=== PATIENT | male | born 1965 | race Caucasian/White ===

== ENCOUNTER 2020-10-18 11:23 | Emergency (ER) | payer OTHER, MEDICARE | END 2020-10-18 14:47 | disposition home or self-care (01) | LOC: JVIRT 11:23 | DX: Z11.52 Encounter for screening for COVID-19 (principal) | CPT/HCPCS: C9803; G2251-GT; U0003 ==

== ENCOUNTER 2020-10-25 10:42 | Emergency (ER) | payer OTHER, MEDICARE | END 2020-10-25 10:51 | disposition home or self-care (01) | LOC: JVIRT 10:42 | DX: Z20.822 Contact with and (suspected) exposure to COVID-19 (principal) | CPT/HCPCS: C9803; G2251-GT; U0003 ==

== ENCOUNTER 2021-04-22 14:31 | Emergency (ER) | payer OTHER, MEDICARE ==
[2021-04-24 12:07] LABS: SARS-CoV-2 NAA Not Detected (Not Detected)
== END 2021-04-22 16:25 | disposition home or self-care (01) ==
LOC: JVIRT 14:31
DX: R09.81 Nasal congestion (principal); R07.0 Pain in throat; Z11.52 Encounter for screening for COVID-19
CPT/HCPCS: C9803; Q3014-GT; U0003; U0005

== ENCOUNTER 2024-02-05 19:56 | Inpatient (IN) | payer OTHER, MEDICARE ==
[2024-02-05 20:48] LABS: HEMATOCRIT 39.2 % (35.4-49); HEMOGLOBIN 12.5 G/dL (11.7-16.9); MCH 28.8 pg (25.7-33.7); MEAN PLT VOLUME 8.7 fl (7.5-11.1); PLATELET COUNT 169.1 10^3/uL (134-434); RBC 4.35 10^6/uL (4.00-5.60); RDW 14.8 % (11.9-15.9); WHITE BLOOD COUNT 12.1 10^3/uL (4.0-10.8)
[2024-02-05 20:57] LABS: INR 1.14 (0.83-1.09); PROTHROMBIN TIME (PATIENT) 12.9 SEC (9.7-13.0)
[2024-02-05 20:58] LABS: PLATELET ESTIMATE ADEQUATE
[2024-02-05 21:00] LABS: ACTIVATED PTT 33.1 SECONDS (25.2-36.5)
[2024-02-05 21:06] LABS: ALBUMIN 3.8 g/dl (3.4-5.0); BILIRUBIN,TOTAL 0.9 mg/dl (0.2-1); CALCIUM 8.5 mg/dl (8.5-10.1); POTASSIUM 3.6 mmol/L (3.5-5.1); TOT PROT 5.3 g/dl (6.4-8.2)
[2024-02-05 21:14] LABS: VENOUS BASE EXCESS 0.1 mmol/L (-2-2); VENOUS O2 SATURATION 70.2 % (70-80); VENOUS PCO2 37.6 mmHg (38-52); VENOUS PH 7.427 (7.310-7.410)
[2024-02-05 21:56] LABS: LACTIC ACID 2.1 mmol/L (0.4-2.0)
[2024-02-05] MEDS ORDERED: ACETAMINOPHEN INJECTION 100 ML IVPB ONE (22:45)
[2024-02-05] MEDS ORDERED: cefTRIAXone SODIUM 1 GM VIAL ONE (22:55)
[2024-02-05] MEDS ORDERED: AZITHROMYCIN 500 MG VIAL IVPB ONE (22:55)
[2024-02-05] MEDS: ACETAMINOPHEN 1000 MG/100 ML BAG IVPB ONE (22:58)
[2024-02-05] MEDS: CEFTRIAXONE 1,000 MG in DEXTROSE 5%-WATER - 50 ML IVPB ONE (22:58)
[2024-02-05] MEDS: AZITHROMYCIN IVPB 500 MG in DEXTROSE 5%-WATER - 250 ML IVPB ONE (23:18)
[2024-02-06] MEDS ORDERED: ASPIRIN 81 MG CHEWABLE TABLETS ONE (02:10)
[2024-02-06] MEDS: ASPIRIN 81 MG CHEWABLE TABLETS PO ONE (02:20)
[2024-02-06 04:41] VITALS: BMI 30.2
[2024-02-06] MEDS: LEVOTHYROXINE NA 100 MCG TABLET (FP) PO SCH (06:30)
[2024-02-06 08:17] LABS: HEMATOCRIT 35.1 % (35.4-49); HEMOGLOBIN 11.3 G/dL (11.7-16.9); MCH 28.9 pg (25.7-33.7); MCHC 32.2 g/dl (32.0-35.9); MEAN CELL VOLUME 89.9 fl (80-96); MEAN PLT VOLUME 8.4 fl (7.5-11.1); PLATELET COUNT 149.9 10^3/uL (134-434); WHITE BLOOD COUNT 12.3 10^3/uL (4.0-10.8)
[2024-02-06 09:00] LABS: ANION GAP 10 mmol/L (4-13); CALCIUM 8.2 mg/dl (8.5-10.1); CHLORIDE 105 mmol/L (98-107); CO2 25 mmol/L (21-32); GLUCOSE,RANDOM 140 mg/dl (74-106); MAGNESIUM 1.5 mg/dL (1.8-2.4); POTASSIUM 3.6 mmol/L (3.5-5.1); SODIUM 140 mmol/L (136-145)
[2024-02-06] MEDS: metoPROLOL SUCCINATE 25 MG TAB.SR.24H (FP) PO SCH (09:43)
[2024-02-06] MEDS: ENOXAPARIN NA (PORCINE) 40 MG/0.4 ML DISP.SYRIN SQ SCH (09:45)
[2024-02-06] MEDS: INSULIN ASPART SLIDING SCALE (NOVOLOG) 1 VIAL SQ SCH (11:05)
[2024-02-06] MEDS: MAGNESIUM OXIDE 400 MG TABLET (FP) PO ONE (21:11)
[2024-02-06] MEDS: ROSUVASTATIN CA 20 MG TABLET PO SCH (21:11)
[2024-02-06] MEDS: CLOPIDOGREL BISULFATE 75 MG TABLET (FP) PO SCH (21:13)
[2024-02-06] MEDS: CEFTRIAXONE 1 GM in DEXTROSE 5%-WATER - 50 ML IVPB SCH (21:14)
[2024-02-06] MEDS: AZITHROMYCIN IVPB 500 MG/250 ML BAG IVPB SCH (21:48)
[2024-02-06] MEDS: guaiFENesin/D-METHORPHAN HB 10 ML UNIT-DOSE CUPS PO PRN (22:05)
[2024-02-07 08:35] LABS: BASO % 0.2 % (0-2.0); EOS % 2.1 % (0-4.5); HEMATOCRIT 31.2 % (35.4-49); HEMOGLOBIN 10.7 GM/dL (11.7-16.9); LYMPH % 20.1 % (8-40); MCH 29.6 pg (25.7-33.7); MCHC 34.2 g/dl (32.0-35.9); MEAN CELL VOLUME 86.4 fl (80-96); MONO % 5.6 % (3.8-10.2); PLATELET COUNT 173 10^3/uL (134-434); RBC 3.61 M/mm3 (4.00-5.60); RDW 14.6 % (11.9-15.9); WHITE BLOOD COUNT 8.3 K/mm3 (4.0-10.0)
[2024-02-07 09:18] LABS: ALBUMIN 3.5 g/dl (3.4-5.0); BILIRUBIN,TOTAL 0.4 mg/dl (0.2-1); CALCIUM 8.2 mg/dl (8.5-10.1); CREATININE 0.9 mg/dl (0.6-1.3); MAGNESIUM 1.7 mg/dL (1.8-2.4); PHOSPHOROUS 3.3 (2.5-4.9); POTASSIUM 3.9 mmol/L (3.5-5.1)
[2024-02-07] MEDS: predniSONE 20 MG TABLET (UD) PO SCH (10:45)
[2024-02-07] MEDS: FLUTICASONE/UMECLIDIN/VILANTER(100-62.5-25 TRELEGY ELLIPTA) INAHLER IH SCH (10:46)
[2024-02-07] MEDS: ALBUTEROL SO4 2.5/IPRATROPIUM 0.5 INH SOL 3 ML VIAL.NEB. NEB SCH (13:16)
[2024-02-09 09:23] VITALS: BP 124/70; PULSE 64; RESP 18; TEMP 97.8
[2024-02-09] MEDS: INSULIN (LEVEMIR) 100 UNITS/ML UNITS SQ ONE (12:02)
== END 2024-02-09 12:05 | disposition home or self-care (01) | DRG 190 ==
LOC: FER 19:56 → FM/S 02-06 02:27
PROVIDERS: ADMIT Internal Medicine
DX: J44.0 Chronic obstructive pulmonary disease with (acute) lower respiratory infection (principal); J18.9 Pneumonia, unspecified organism; I24.89 Other forms of acute ischemic heart disease; E11.9 Type 2 diabetes mellitus without complications; I10 Essential (primary) hypertension; E78.5 Hyperlipidemia, unspecified; I25.10 Atherosclerotic heart disease of native coronary artery without angina pectoris; F17.210 Nicotine dependence, cigarettes, uncomplicated; R09.81 Nasal congestion; R05.9 Cough, unspecified
CPT/HCPCS: 0241U-QW; 36415; 71045-TC-FY; 71275-TC; 80048; 80053; 81003; 81015; 82803; 82962; 83605; 83735; 84100; 84484; 85025; 85027; 85610; 85730; 87040; 87086; 93005; 94640; 99285-25; J0131; Q9967

== ENCOUNTER 2024-03-29 09:07 | Day surgery (SDC) | payer OTHER, MEDICARE ==
[2024-03-24 12:23] VITALS: BMI 29.8
[2024-03-29 11:16] VITALS: PULSE 57; RESP 16; TEMP 97.9
[2024-03-29 12:09] VITALS: BP 125/74
== END 2024-03-29 12:20 | disposition home or self-care (01) ==
LOC: FASU-ENDO 09:07
PROVIDERS: ATTEND Internal Medicine Gastroenterology
PROC: 0DBK8ZX Excision of Ascending Colon, Via Natural or Artificial Opening Endoscopic, Diagnostic (ICD-10-PCS; principal; 2024-03-29 10:52)
DX: Z12.11 Encounter for screening for malignant neoplasm of colon (principal); D12.2 Benign neoplasm of ascending colon
CPT/HCPCS: 82962; 88305-TC